=== PATIENT | female | born 1970 | race Two or more races ===

== ENCOUNTER 2019-09-29 15:25 | Emergency (ER) | payer MEDICAID ==
[~2019-09-29 15:25] MED LIST: ALPR1TAB2; ASPI81CH43; BUTA-91; CETI10CA; CYCL-181; DICL-37; FLUO20CA19; FURO1TAB31; GLUCPOW42; HYDR-1421; LISI-713; MECL25CH20; METF1000; NAPR-223; NORVASC; OME20GT; OMEP20TA44
== END 2019-09-29 21:03 | disposition left against medical advice (07) ==
LOC: ER 15:25
DX: R50.9 Fever, unspecified (principal); R05 Cough; R11.2 Nausea with vomiting, unspecified; R19.7 Diarrhea, unspecified; Z53.21 Procedure and treatment not carried out due to patient leaving prior to being seen by health care provider